=== PATIENT | male | born 1940 | race Caucasian/White ===

== ENCOUNTER 2022-12-30 16:51 | Emergency (ER) | payer MEDICARE, OTHER ==
[~2022-12-30] VITALS: Ht 167.6 cm; Wt 70.8 kg
--- NOTE | 2022-12-30 17:00 | NUR ---
C/O BACK PAIN FOR ONE Week no NO HX TRUAMAMOVING UPPER AND LOWER EXTRAMITY NO WEEKNESS
[2022-12-30] MEDS ORDERED: ACETAMINOPHEN ES 500 MG TABLET PO ONE (18:30)
[2022-12-30] MEDS ORDERED: CYCLOBENZAPRINE 10 MG TABLET PO ONE (18:30)
[2022-12-30] MEDS ORDERED: LIDOCAINE 5% (PATCH) 1 EA PATCH TP SCH (18:30)
[2022-12-30] MEDS ORDERED: ACETAMINOPHEN ES 500 MG TABLET ONE (18:38)
[2022-12-30] MEDS ORDERED: CYCLOBENZAPRINE 10 MG TABLET ONE (18:39)
[2022-12-30] MEDS ORDERED: LIDOCAINE 5% (PATCH) 1 EA PATCH TP ONE (18:40)
--- NOTE | 2022-12-30 19:05 | NUR ---
TO CT SCAN
--- NOTE | 2022-12-30 19:15 | NUR ---
CT LUMBER DONE
--- NOTE | 2022-12-30 19:15 | NUR ---
[facility]
--- NOTE | 2022-12-30 19:21 | NUR ---
HAND OFF ASHLEY PASCUAL
--- NOTE | 2022-12-30 19:25 | NUR ---
Pt is noted alert, responsive as report is received from the off going nurse janett Pt guerome from home C/O Lower Back and BLE Pain with Numbness x1week . Pt care continue as awaits CT and other results while monitor closely with familt at bedside.
[2022-12-30] MEDS ORDERED: NAPR-1009 PO (20:19)
[2022-12-30] MEDS ORDERED: PRED20TA PO (20:19)
--- NOTE | 2022-12-30 20:27 | NUR ---
Patient discharged to home in stable condition. Written and verbal after care instructions given. Patient verbalizes understanding of instruction.
[2022-12-30 20:32] VITALS: BP 145/76
== END 2022-12-30 20:33 | disposition home or self-care (01) ==
LOC: ER 17:00
DX: M48.061 Spinal stenosis, lumbar region without neurogenic claudication (principal); M51.26 Other intervertebral disc displacement, lumbar region; I10 Essential (primary) hypertension; E78.00 Pure hypercholesterolemia, unspecified; Z79.899 Other long term (current) drug therapy
CPT/HCPCS: 72131-TC